=== PATIENT | female | born 1985 | race Caucasian/White ===

== ENCOUNTER 2023-08-28 16:30 | Inpatient (IN) ==
[2023-08-28] MEDS ORDERED: Lactated Ringers 1000 ml BAG 1,000 ML IV ONE (18:08)
[2023-08-28] MEDS ORDERED: Promethazine INJ(RESTRICTED) 25 MG/ML 1 ml VIAL IV PRN (18:08)
[2023-08-28] MEDS ORDERED: Lidocaine 1% VIAL 10 MG/ML 30 ML VIAL INJ PRN (18:08)
[2023-08-28] MEDS ORDERED: Buffered Lidocaine 1% SYRIN 1 ml INTRADERM ONE (18:08)
[2023-08-28] MEDS ORDERED: Lactated Ringers 1000 ml BAG 1,000 ML IV SCH (19:00)
[2023-08-29] MEDS ORDERED: Witch Hazel PAD JAR TOPICAL PRN (00:45)
[2023-08-29] MEDS ORDERED: Glycerin ADULT 2.4 gm SUPP PR PRN (00:45)
[2023-08-29] MEDS ORDERED: Oxytocin 10 UNITS/ML 1 ML VIAL IM ONE (00:45)
[2023-08-29] MEDS ORDERED: Dibucaine 1% OINT 28.35 GM TUBE PR PRN (00:45)
[2023-08-29] MEDS ORDERED: Lactated Ringers 1000 ml BAG 1,000 ML IV SCH (01:00)
[2023-08-29 04:43] LABS: Urine Benzodiazepine Screen None Detected (None Detect); Urine Opiates Screen None Detected (None Detect)
[2023-08-30 07:15] LABS: ABS Basophils 0.1 10^3/uL (0.0-0.1); ABS Eosinophils 0.1 10^3/uL (0.0-0.5); ABS Lymphocytes 2.5 10^3/uL (1.0-4.8); ABS Monocytes 0.7 10^3/uL (0.0-0.9); Hematocrit 32.1 % (35-45); Hemoglobin 10.8 g/dL (11.5-14.3); Lymphocyte % 19.9 %; Mean Corpuscular Hemoglobin 27.8 pg (27-33); Mean Corpuscular Hgb Conc 33.7 g/dL (31-36); Mean Corpuscular Volume 82.5 fL (80-97); Mean Platelet Volume 10.1 fL (7.5-11.2); Platelet Count 163 10^3/uL (150-450); Red Cell Distribution Width 16.2 % (12-17); White Blood Count 12.4 10^3/uL (3.8-11.8)
[2023-08-30 08:54] VITALS: BP 107/72
== END 2023-08-30 12:42 | disposition home or self-care (01) | DRG 560 ==
LOC: MCHOBOUT 16:30 → MCHOB 18:10
PROVIDERS: ADMIT Registered Nurse; ATTEND Registered Nurse